=== PATIENT | male | born 1970 | race Caucasian/White ===

== ENCOUNTER → 2017-05-25 | Outpatient (CLI) | payer OTHER ==
[~2017-05-25] MED LIST: BENEDRYL PO; HYDR-3144 PO; MAGN400O4 PO; METH4TAB2 PO; METH750T87 PO; SENN1TAB5 PO
== END | disposition home or self-care (01) ==
LOC: CFH 14:33
PROVIDERS: ATTEND Neurological Surgery
DX: M48.06 Spinal stenosis, lumbar region (principal); M48.07 Spinal stenosis, lumbosacral region; M43.16 Spondylolisthesis, lumbar region; Z98.890 Other specified postprocedural states
CPT/HCPCS: 72110

== ENCOUNTER 2017-05-26 09:17 | Day surgery (SDC) | payer OTHER ==
[2017-05-26] MEDS ORDERED: LIDOCAINE 0.5%-EPI 1:200K, 50ML ONE (15:11)
[2017-05-26] MEDS ORDERED: LIDOCAINE/PF 1.5%-EPI 1:200K, 30ML ONE (15:11)
== END 2017-05-26 15:00 ==
LOC: OUT 09:17 → EDSTATUS 09:30 → OUT 15:00
PROVIDERS: ATTEND Neurological Surgery
DX: M48.06 Spinal stenosis, lumbar region (principal); M43.16 Spondylolisthesis, lumbar region; M51.36 Other intervertebral disc degeneration, lumbar region; Z98.890 Other specified postprocedural states
CPT/HCPCS: 72131; 72148; J3490

== ENCOUNTER → 2017-05-26 | Outpatient (CLI) | payer OTHER | END | disposition home or self-care (01) | LOC: RAD 14:05 | PROVIDERS: ATTEND Neurological Surgery | DX: G51.3 Clonic hemifacial spasm (principal) | CPT/HCPCS: 70551 ==

== ENCOUNTER → 2017-09-27 | Outpatient (CLI) | payer OTHER ==
[~2017-09-27] MED LIST changes: +GABA300C10 PO; -HYDR-3144 PO; +HYDR-3241 PO; +HYDR-3245 PO; -MAGN400O4 PO; +MAGN400O7 PO; +MULT-224 PO; +PROP50TA3 PO; +SENN-52 PO; -SENN1TAB5 PO; +TRIH2TAB3 PO
[2017-09-27 09:32] LABS: HEMOGLOBIN 15.2 g/dL (13.7-18.0); WHITE BLOOD COUNT 4.9 x10^3/uL (3.4-10)
[2017-09-27 09:34] LABS: HEMATOCRIT 43.3 % (39.2-51.8)
[2017-09-27 09:41] LABS: BLOOD UREA NITROGEN 12 mg/dL (7-18)
== END | disposition home or self-care (01) ==
LOC: STAR 08:11
PROVIDERS: ATTEND Neurological Surgery
DX: Z01.818 Encounter for other preprocedural examination (principal); R94.31 Abnormal electrocardiogram [ECG] [EKG]; M96.0 Pseudarthrosis after fusion or arthrodesis; R79.1 Abnormal coagulation profile
CPT/HCPCS: 36415; 71020; 80048; 81003; 85025; 85610; 85730; 93005

== ENCOUNTER 2017-10-11 07:27 | Inpatient (IN) | payer OTHER ==
[~2017-10-11] VITALS: Ht 193 cm; Wt 87.0 kg
[~2017-10-11 07:27] MED LIST changes: +BACITRACIN 50,000 UNIT ONE; +BUPIVACAINE/PF 0.5% ONE; +EPINEPHRINE 1 MG/ML, 1ML ONE; +THROMBIN 5,000 UNIT VIAL TP ONE; +VANCOMYCIN 1,000 MG ONE
[2017-10-11] MEDS ORDERED: LACTATED RINGERS 1,000 ML IV SCH (08:30)
[2017-10-11 09:00] VITALS: BP 134/96
[2017-10-11] MEDS ORDERED: FENTANYL PF 100 MCG/2ML ONE ×2 (10:17→13:44)
[2017-10-11] MEDS ORDERED: MIDAZOLAM 1 MG/ML, 2ML ONE (10:17)
[2017-10-11] MEDS ORDERED: PROPOFOL 50 ML ONE ×3 (10:18→12:42)
[2017-10-11] MEDS ORDERED: REMIFENTANIL 2 MG ONE (10:18)
[2017-10-11] MEDS ORDERED: MIDAZOLAM 1 MG/ML, 2ML IV PRN (12:30)
[2017-10-11] MEDS ORDERED: LABETALOL 5MG/ML, 20ML IV PRN (12:30)
[2017-10-11] MEDS ORDERED: DIAZEPAM 5 MG/ML, 2ML IVPush PRN (12:30)
[2017-10-11] MEDS ORDERED: OXYcodone 5 MG/5 ML ORAL.SOL UDC PO PRN (12:30)
[2017-10-11] MEDS ORDERED: FENTANYL PF 100 MCG/2ML IV PRN (12:30)
[2017-10-11] MEDS ORDERED: ONDANSETRON 2MG/ML, 2ML IVPush PRN ×2 (12:30→13:30)
[2017-10-11] MEDS ORDERED: hydrALAzine 20 MG/ML, 1ML IV PRN (12:30)
[2017-10-11] MEDS ORDERED: ACETAMINOPHEN 325 MG TABLET PO PRN (12:30)
[2017-10-11] MEDS ORDERED: EPHEDRINE 50 MG/ML, 1ML IVPush PRN (12:30)
[2017-10-11] MEDS ORDERED: MEPERIDINE/PF 25MG/0.5ML IVPush PRN (12:30)
[2017-10-11] MEDS ORDERED: ALBUTEROL SULFATE 2.5 MG/3 ML NPPB PRN (12:30)
[2017-10-11] MEDS ORDERED: PROMETHAZINE 25 MG/ML, 1ML IV PRN (12:30)
[2017-10-11] MEDS ORDERED: METOPROLOL 1 MG/ML, 5ML IV PRN (12:30)
[2017-10-11] MEDS ORDERED: HYDROcodone/APAP 7.5-325MG/15ML UDC PO PRN (12:30)
[2017-10-11] MEDS ORDERED: BUPIVACAINE/PF 0.5% ONE (12:41)
[2017-10-11] MEDS ORDERED: EPINEPHRINE 1 MG/ML, 1ML ONE (12:41)
[2017-10-11] MEDS ORDERED: DEXAMETHASONE 4 MG/ML, 1ML ONE (12:51)
[2017-10-11] MEDS ORDERED: ROCURONIUM 10 MG/ML,10ML ONE (12:51)
[2017-10-11] MEDS ORDERED: PROPOFOL 10 MG/ML, 20ML ONE (12:51)
[2017-10-11] MEDS ORDERED: ONDANSETRON 2MG/ML, 2ML ONE (12:51)
[2017-10-11] MEDS ORDERED: SUCCINYLCHOLINE 20 MG/ML, 10ML ONE (12:51)
[2017-10-11] MEDS ORDERED: CEFAZOLIN 1,000 MG ONE (12:51)
[2017-10-11] MEDS ORDERED: HYDROmorphone 1 MG/ML, 1ML ONE (13:04)
[2017-10-11] MEDS ORDERED: GABAPENTIN 300 MG CAPSULE PO PRN (13:30)
[2017-10-11] MEDS ORDERED: MEPERIDINE/PF 100 MG/ML IM PRN (13:30)
[2017-10-11] MEDS ORDERED: PHARMACY MAY ADJ FOR RENAL FX MC PRN (13:30)
[2017-10-11] MEDS ORDERED: DIPHENHYDRAMINE 50 MG/ML, 1ML IVPush PRN (13:30)
[2017-10-11] MEDS ORDERED: BISACODYL 10 MG SUPP PR PRN (13:30)
[2017-10-11] MEDS ORDERED: MAGNESIUM HYDROXIDE 8%, 30ML UDC PO PRN (13:30)
[2017-10-11] MEDS ORDERED: PROMETHAZINE 25 MG/ML, 1ML IM PRN (13:30)
[2017-10-11] MEDS ORDERED: HYDROmorphone PCA 30 MG/30 ML IV PRN (13:30)
[2017-10-11] MEDS ORDERED: HYDROmorphone PCA 30 MG/30 ML ONE (13:44)
[2017-10-11] MEDS ORDERED: ACETAMINOPHEN 650 MG/20.3 ML UDC ONE (13:44)
[2017-10-11] MEDS ORDERED: OXYcodone 5 MG/5 ML ORAL.SOL UDC ONE (13:45)
[2017-10-11] MEDS ORDERED: HYDROmorphone 2 MG/ML, 1ML ONE (14:01)
[2017-10-11] MEDS ORDERED: METHOCARBAMOL 750 MG TABLET ONE (14:01)
[2017-10-11] MEDS: METHOCARBAMOL 750 MG TABLET PO PRN (14:06)
[2017-10-11] MEDS: HYDROmorphone 1 MG/ML, 1ML IV PRN ×3 (14:08→14:24)
[2017-10-11 15:30] VITALS: BP 126/80
[2017-10-11] MEDS: NS + 20MEQ KCL 1,000 ML IV SCH (16:25)
[2017-10-11] MEDS: CEFAZOLIN PMX 1GM/50ML 50 ML IVPB SCH (18:43)
[2017-10-11 19:46] VITALS: BP 125/73
[2017-10-11] MEDS: SODIUM CHLORIDE FLUSH 10ML SYR IVF SCH (20:17)
[2017-10-11] MEDS: HYDROcodone/APAP 10/325 MG TABLET PO PRN (20:18)
[2017-10-11] MEDS: DIAZEPAM 5 MG TABLET PO PRN (23:11)
[2017-10-11 23:14] VITALS: BP 107/62
[2017-10-12] MEDS: HYDROcodone/APAP 10/325 MG TABLET PO PRN ×2 (00:50→05:44)
[2017-10-12 02:18] VITALS: BP 104/57
[2017-10-12] MEDS: CEFAZOLIN PMX 1GM/50ML 50 ML IVPB SCH (03:37)
[2017-10-12] MEDS: NS + 20MEQ KCL 1,000 ML IV SCH ×3 (03:38→22:30)
[2017-10-12] MEDS: METHOCARBAMOL 750 MG TABLET PO PRN (03:43)
[2017-10-12 05:14] LABS: HEMATOCRIT 35.3 % (39.2-51.8); HEMOGLOBIN 12.1 g/dL (13.7-18.0); WHITE BLOOD COUNT 12.4 x10^3/uL (3.4-10)
[2017-10-12 05:23] LABS: BLOOD UREA NITROGEN 14 mg/dL (7-18)
[2017-10-12 07:26] VITALS: BP 103/63
[2017-10-12] MEDS: SODIUM CHLORIDE FLUSH 10ML SYR IVF SCH ×2 (09:00→21:00)
[2017-10-12] MEDS: PROPYLTHIOURACIL 50 MG TABLET PO SCH (09:53)
[2017-10-12] MEDS: SENNA/DOCUSATE TABLET PO SCH (09:53)
[2017-10-12] MEDS ORDERED: OXYcodone/APAP 10/325MG TABLET PO PRN (10:00)
[2017-10-12] MEDS: TIZANIDINE 4MG TABLET PO SCH ×2 (10:07→17:46)
[2017-10-12] MEDS: TRIHEXYPHENIDYL 2MG TABLET PO SCH (10:07)
[2017-10-12 13:01] VITALS: BP 111/63
[2017-10-12] MEDS ORDERED: HYDROmorphone 1 MG/ML, 1ML IV PRN (13:30)
[2017-10-12] MEDS: OXYcodone/APAP 10/325MG TABLET PO PRN ×3 (13:52→21:43)
[2017-10-12] MEDS: DIAZEPAM 5 MG TABLET PO PRN ×2 (15:33→21:43)
[2017-10-12 20:00] VITALS: BP 110/62
[2017-10-13] MEDS: TIZANIDINE 4MG TABLET PO SCH ×2 (01:53→11:50)
[2017-10-13] MEDS: OXYcodone/APAP 10/325MG TABLET PO PRN ×3 (01:53→11:50)
[2017-10-13 01:55] VITALS: BP 117/72
[2017-10-13 05:04] LABS: HEMOGLOBIN 11.6 g/dL (13.7-18.0); WHITE BLOOD COUNT 7.4 x10^3/uL (3.4-10)
[2017-10-13 05:08] LABS: BLOOD UREA NITROGEN 10 mg/dL (7-18)
[2017-10-13 07:11] VITALS: BP 136/82
[2017-10-13] MEDS: PROPYLTHIOURACIL 50 MG TABLET PO SCH (07:30)
[2017-10-13] MEDS: SENNA/DOCUSATE TABLET PO SCH (07:30)
[2017-10-13] MEDS: DIAZEPAM 5 MG TABLET PO PRN (07:30)
[2017-10-13] MEDS: TRIHEXYPHENIDYL 2MG TABLET PO SCH (07:31)
[2017-10-13] MEDS: SODIUM CHLORIDE FLUSH 10ML SYR IVF SCH (07:31)
[2017-10-13] MEDS: NS + 20MEQ KCL 1,000 ML IV SCH (08:30)
[2017-10-13] MEDS ORDERED: OXYC-307 PO (08:59)
[2017-10-13] MEDS ORDERED: TIZA4TAB9 PO (09:01)
[2017-10-13] MEDS ORDERED: DIAZ5TAB PO (09:02)
[2017-10-13] MEDS ORDERED: POLY17PO5 PO (09:03)
== END 2017-10-13 12:04 | disposition home or self-care (01) | DRG 460 ==
LOC: ORIP 07:27 → 4NOR 15:31
PROVIDERS: ADMIT Neurological Surgery; ATTEND Neurological Surgery
PROC: 01NB0ZZ Release Lumbar Nerve, Open Approach (ICD-10-PCS; 2017-10-11)
PROC: 0SP00AZ Removal of Interbody Fusion Device from Lumbar Vertebral Joint, Open Approach (ICD-10-PCS; 2017-10-11)
PROC: 3E0U0GB Introduction of Recombinant Bone Morphogenetic Protein into Joints, Open Approach (ICD-10-PCS; 2017-10-11)
PROC: 0SG00AJ Fusion of Lumbar Vertebral Joint with Interbody Fusion Device, Posterior Approach, Anterior Column, Open Approach (ICD-10-PCS; principal; 2017-10-11 10:30)
DX: M43.16 Spondylolisthesis, lumbar region (principal); M54.16 Radiculopathy, lumbar region
CPT/HCPCS: 36415; 72100; 80048; 85025; 95938; 95941; C1713; C1776; J0171; J0690; J1100; J1170; J2250; J2405; J2704; J3010; J3370; J3480; J3490; C1762; J0330; J7120